=== PATIENT | female | born 1955 | race Hispanic/Latino ===

== ENCOUNTER 2019-01-19 12:01 | Outpatient (CLI) | payer OTHER ==
--- NOTE | 2019-01-19 13:41 | ULT ---
BILATERAL CAROTID DUPLEX ULTRASOUND: HISTORY: Bilateral carotid bruits. TECHNIQUE: Benavides scale ultrasound with color flow and spectral Doppler imaging of the extracranial carotid artery systems is performed bilaterally. FINDINGS: No significant plaque formation or intimal wall thickening is seen on either side. The peak systolic velocity in the right ICA measures 116 cm/s with an end-diastolic velocity of 23 cm /s and a systolic ratio of 1.25. The peak systolic velocity in the left ICA measures 103 cm/s with an end-diastolic velocity of 29 cm/ s and a systolic ratio of 0.89. Flow in both vertebral arteries remains antegrade. IMPRESSION: No evidence of hemodynamically significant stenosis. POS: [facility]
== END 2019-01-19 12:02 | disposition home or self-care (01) ==
LOC: BICULT 12:01
PROVIDERS: ATTEND Family Medicine
DX: R09.89 Other specified symptoms and signs involving the circulatory and respiratory systems (principal)
CPT/HCPCS: 93880

== ENCOUNTER 2019-02-13 08:20 | Outpatient (CLI) | payer OTHER ==
--- NOTE | 2019-02-13 09:36 | MRI ---
EXAM: MRI left shoulder PROVIDED CLINICAL HISTORY: Pain COMPARISON: None FINDINGS: Evaluation is limited by patient motion. There is predominantly high-grade partial-thickness undersurface tearing of the distal conjoined tend on at the footplate, with superimposed full-thickness, partial width tearing involving the posterior distal supraspinatus tendon at the footplate. The components of the rotator cuff appear oth erwise intact. The long head biceps tendon appears grossly intact and normally located. There is a circumscribed focus of fat signal intensity immediately anterior to the biceps tendon at t he level of the bicipital groove inferiorly. This measures about 2.5 cm. This may reflect intra-articular body. The glenoid labrum and glenohumeral articular cartilage are suboptimally evaluated in the absence of joint distention. There is no definite abnormality of either evident. There is a small glenohumeral joint effusion. Acromioclavicular joint osteoarthrosis is demonstrated with lateral downsloping of the acromion, narr owing the subacromial space. There is greater than physiologic subacromial subdeltoid bursal fluid. There is minimal muscular volume loss with some fatty infiltration involving the teres minor muscle, less conspicuous than is usually seen in the setting of chronic denervation and the significance of which is uncertain. Rotator cuff muscular volume appears otherwise preserved. No focal concerning regional marrow or muscular signal abnormality is evident. IMPRESSION: 1. Predominantly high-grade partial-thickness undersurface tear involving the distal conjoined tendon with focal full-thickness, partial width component. 2. Glenohumeral joint effusion with question intra-articular body in the bicipital groove anteriorly. Radiographic correlation is necessary. 3. Acromioclavicular joint osteoarthrosis and lateral downslope of the acromion, narrowing the subacr omial space. 4. Mild muscular volume loss and fatty infiltration involving the teres minor muscle, nonspecific. Th is is less conspicuous than is usually seen in the setting of chronic denervation (quadrilateral space syndrome) but could represent such.
== END 2019-02-13 08:21 | disposition home or self-care (01) ==
LOC: BICMRI 08:20
PROVIDERS: ATTEND Family Medicine
DX: S46.912A Strain of unspecified muscle, fascia and tendon at shoulder and upper arm level, left arm, initial encounter (principal); M25.412 Effusion, left shoulder; M19.012 Primary osteoarthritis, left shoulder; M62.89 Other specified disorders of muscle